=== PATIENT | female | born 1970 | race Two or more races ===

== ENCOUNTER 2023-12-11 18:50 | Emergency (ER) | payer MEDICAID ==
[~2023-12-11] VITALS: Ht 165.1 cm; Wt 102.0 kg
[2023-12-11 19:13] VITALS: BP 125/64; PULSE 79; RESP 18; TEMP 98.2
[2023-12-11] MEDS ORDERED: METF-1185 PO (19:24)
[2023-12-11] MEDS ORDERED: [UNRECOGNIZED DRUG - OTHER] PO (19:24)
[2023-12-11 19:41] LABS: GLUCOMETER DEV NAME(LOC) ERT.5; GLUCOSE,POINT OF CARE 158 MG/DL (70-110)
[2023-12-11] MEDS: KETOROLAC TROMETHAMINE 30 MG/ML VIAL IM ONE (21:54)
[2023-12-11 22:09] LABS: APPEARANCE,URINE CLEAR (CLEAR); BILIRUBIN,URINE NEGATIVE (NEGATIVE); COLOR,URINE COLORLESS (YELLOW); GLUCOSE, URINE (UA) NEGATIVE (NEGATIVE); KETONES,URINE NEGATIVE (NEGATIVE); LEUKOCYTE ESTERASE ,URINE NEGATIVE (NEGATIVE); NITRATE,URINE NEGATIVE (NEGATIVE); OCCULT BLOOD,URINE NEGATIVE (NEGATIVE); PH,URINE 5.5 (5.0-8.0); PROTEIN,URINE NEGATIVE (NEGATIVE); SPECIFIC GRAVITIY, URINE 1.018 (1.003-1.030); UROBILINOGEN,URINE <=1.0 mg/dL (<=1.0)
[2023-12-11] MEDS: HYDROCODONE/ACETAMINOPHEN 5-325 MG TABLET PO ONE (22:46)
[2023-12-11] MEDS ORDERED: CYCL-448 PO (23:43)
[2023-12-11] MEDS ORDERED: IBUP-1492 PO (23:43)
[2023-12-11] MEDS ORDERED: HYDR-4062 PO (23:43)
== END 2023-12-12 00:31 | disposition home or self-care (01) ==
LOC: EMS 18:54
DX: R10.31 Right lower quadrant pain (principal); E11.9 Type 2 diabetes mellitus without complications; I10 Essential (primary) hypertension
CPT/HCPCS: 99284; 81003; 82962; 73502; 96372; J1885

== ENCOUNTER 2023-12-13 12:51 | Emergency (ER) | payer MEDICAID ==
[~2023-12-13] VITALS: Ht 165.1 cm; Wt 95.5 kg
[~2023-12-13 12:51] MED LIST: CYCL-448 PO; HYDR-4062 PO; IBUP-1492 PO; METF-1185 PO; [UNRECOGNIZED DRUG - OTHER] PO
[2023-12-13 13:36] LABS: BASOPHILS % (AUTO) 0.7 % (0.0-2.0); EOSINOPHILS % (AUTO) 3.7 % (1.0-6.0); HEMATOCRIT 39.9 % (36-46); LYMPHOCYTES # (AUTO) 2.2 K/uL (1.0-4.8); LYMPHOCYTES % (AUTO) 28.2 % (22.0-44.0); MEAN CORPUSCULAR HEMOGLOBIN 28.2 pg (26.0-34.0); MEAN CORPUSCULAR HGB CONC 32.5 G/dL (31.0-37.0); MEAN CORPUSCULAR VOLUME 87 fL (80-100); MONOCYTES # (AUTO) 0.7 K/uL (0.1-1.0); MONOCYTES % (AUTO) 8.9 % (2.0-9.0); NEUTROPHILS # (AUTO) 4.5 K/uL (1.8-7.7); NEUTROPHILS % (AUTO) 58.5 % (40.0-70.0); PLATELET COUNT (AUTO) 286 K/uL (150-450); RED CELL DISTRIBUTION WIDTH 14.8 % (11.5-14.5); WHITE BLOOD COUNT (AUTO) 7.8 K/uL (4.5-11.0)
[2023-12-13 13:47] LABS: ANION GAP 11 mmol/L (8-16); CALCIUM, TOTAL 9.1 mg/dL (8.8-10.5); CARBON DIOXIDE 26 mmol/L (22-29); CHLORIDE 101 mmol/L (98-107); CREATININE 0.92 mg/dL (0.60-1.30); GLOMERULAR FILTR. RATE CALC > 60 mL/min (>60); GLUCOSE,RANDOM 270 mg/dL (70-110); POTASSIUM 4.1 mmol/L (3.5-5.1); SODIUM SERUM 137 mmol/L (136-145); UREA NITROGEN, BLOOD 21 mg/dL (7-18)
[2023-12-13 13:59] LABS: APPEARANCE,URINE CLEAR (CLEAR); BILIRUBIN,URINE NEGATIVE (NEGATIVE); COLOR,URINE LIGHT YELLOW (YELLOW); GLUCOSE, URINE (UA) 300-500 mg/dL (NEGATIVE); KETONES,URINE NEGATIVE (NEGATIVE); LEUKOCYTE ESTERASE ,URINE NEGATIVE (NEGATIVE); NITRATE,URINE NEGATIVE (NEGATIVE); OCCULT BLOOD,URINE NEGATIVE (NEGATIVE); PROTEIN,URINE NEGATIVE (NEGATIVE); SPECIFIC GRAVITIY, URINE 1.021 (1.003-1.030); UROBILINOGEN,URINE <=1.0 mg/dL (<=1.0)
[2023-12-13 14:12] LABS: BACTERIA,URINE Moderate /HPF (None Seen); RBC,URINE 0-2 /HPF (0-2); SQUAMOUS EPITHELIAL CELL,UR Few /LPF (None Seen); WBC,URINE 0-2 /HPF (0-5)
[2023-12-13 18:47] VITALS: BP 106/60; PULSE 80; RESP 16; TEMP 97.9
[2023-12-13] MEDS: KETOROLAC TROMETHAMINE 30 MG/ML VIAL IM ONE (19:04)
== END 2023-12-13 19:13 | disposition home or self-care (01) ==
LOC: EMS 12:51
DX: R10.31 Right lower quadrant pain (principal); E11.9 Type 2 diabetes mellitus without complications; I10 Essential (primary) hypertension
CPT/HCPCS: 99285; 72131; 80048; 81001; 85025; 36415; 87086; 87186; 73700; 74176; 96372; J1885

== ENCOUNTER 2023-12-20 21:08 | Emergency (ER) | payer MEDICAID ==
[~2023-12-20] VITALS: Ht 157.5 cm; Wt 106.8 kg
[2023-12-20 21:31] VITALS: TEMP 98.7
[2023-12-21 01:29] VITALS: BP 132/70; PULSE 70; RESP 16
== END 2023-12-21 02:08 | disposition home or self-care (01) ==
LOC: EMS 21:08
DX: R10.31 Right lower quadrant pain (principal); E11.9 Type 2 diabetes mellitus without complications; I10 Essential (primary) hypertension
CPT/HCPCS: 76856; 82962; 99284